=== PATIENT | male | born 1970 | race Caucasian/White ===

== ENCOUNTER 2022-07-08 07:19 | Emergency (ER) | payer MEDICAID, SELFPAY ==
[2022-07-08 07:34] VITALS: BP 156/97; PULSE 64; RESP 16; TEMP 36.7; O2SAT 97; BMI 26.4
--- NOTE | 2022-07-08 07:48 | ED_ITS ---
HPI - Headache General: Chief Complaint: Headache Stated Complaint: head pain, N/V, Fever Time Seen by Provider: 07/08/22 07:41 Source: patient Mode of arrival: ambulatory Limitations: no limitations History of Present Illness: Patient is a 51-year-old male who presents to ED today for treatment of headache. Patient states he has a history of migraine headaches and states this headache currently feels identical to previous migraines only worse in severity. He states when they were living in [place] he was on medications for treatment of his headaches however when they moved to [place] they lost insurance and just now received [place] Medicaid. Patient states while in [place] when he had to go to the ED for headaches they usually gave him Imitrex with good relief. Patient reports headache is worse with light and sound. He reports slight nausea but no episodes of vomiting. Patient reports chronic neck pain that is at his baseline. No pain with range of motion or neck stiffness. Triage mentioned something in regards to a fever however patient tells me that he just felt warm once. No documented fevers. Patient is afebrile here. MD elicited complaint: headache and migraine Pertinent past history: migraines Onset (ago): hour(s) Onset description: gradually Location: frontal Severity: severe Pain scale (0-10): 12 Exacerbating factors: light and noise Relieving factors: nothing Associated symptoms: Reports nausea; Deny fever(s), malaise, rash or vomiting Treatments prior to arrival: migraine medication Review of Systems Const: Denies: fever(s), chills, body aches, fatigue or malaise Eyes: Reports: photophobia; Denies: change in vision, blurry vision, floaters or seeing flashes ENMT: Denies: throat pain, odynophagia, nasal discharge or nasal congestion GI: Reports: nausea; Denies: abdominal pain, vomiting or diarrhea Musc: Denies: neck pain or back pain Skin/Breast: Denies: rash Neuro: Reports: headache(s); Denies: numbness in extremities, weakness in extremities, sensory changes or dizziness Physical Exam Const: COMMON NORMALS: no acute distress, average body habitus, patient oriented x3, no limitations, healthy appearing, alert and well nourished GENERAL APPEARANCE: cooperative ORIENTATION/CONSCIOUSNESS: Yes awake, Yes oriented to person, Yes oriented to place and Yes oriented to time HENMT: COMMON NORMALS: normocephalic and atraumatic HEAD & SCALP: normal to inspection, normocephalic and atraumatic FACE & SINUS: normal facial exam Eye: GENERAL EYE: appearance normal, both eyes and all related structures Neck/C-Spine: COMMON NORMALS: full ROM, no lymphadenopathy, supple and no meningeal signs Resp: COMMON NORMALS: normal respiratory effort and clear to auscultation bilaterally AUSCULTATION: clear to auscultation bilaterally Cardio: COMMON NORMALS: regular rate and regular rhythm RATE: regular rate RHYTHM: regular rhythm Extremity: COMMON NORMALS: normal to inspection GENERAL: Yes normal exam except as noted Neuro: [place] COMA SCALE: document GCS findings [place] coma scale eye opening: Spontaneous [place] coma scale verbal response: Orientated [place] coma scale motor response: Obey commands [place] coma scale total score: 15 COMMON NORMALS: patient oriented x3, CN's II-XII intact bilaterally, moves all extremities, no focal motor deficits, no sensory deficits noted and gait normal SENSORIUM/ORIENTATION: Yes alert, Yes oriented to person, Yes oriented to place and Yes oriented to time MENINGEAL SIGNS: Yes no meningeal signs Skin: COMMON NORMALS: no rashes or lesions noted GENERAL SKIN EXAM: no rashes or lesions noted Course Vital Signs: Vital signs: Vital Signs Temperature 98.1 F 07/08/22 07:34 Pulse Rate 64 07/08/22 07:34 Respiratory Rate 16 07/08/22 07:34 Blood Pressure 156/97 07/08/22 07:34 Pulse Oximetry 97 07/08/22 07:34 Oxygen Delivery Me thod Room Air 07/08/22 07:34 MDM - Headache Medical Decision Making Patient reports JOLLEY has much improved and would like to go home at this time. Return to ED precautions given. Discharge Plan Discharge Patient Disposition: Home Clinical Impression: Migraine Qualifiers: Migraine type: without aura Status migrainosus presence: without status migrainosus Intractability: not intractable Qualified Code(s): G43.009 - Migraine without aura, not intractable, without status migrainosus Condition: Stable Discharge Orders: Discharge ED (Routine); Ordered 07/08/22 Ordered By: Angie Corcoran Referrals: Rayne Ford DO [Primary Care Provider] - Patient Instructions: Headache - Migraine (Adult) Coding Level of Care Code ED Crew Supervisor for [facility] Ul[facility]
[2022-07-08] MEDS: SUMAtriptan 6 mg/0.5 mL SDV SUBCUT (08:11)
[2022-07-08] MEDS: ondansetron 2 mg/ML SDV 2 mL 4 MG IM (08:11)
[2022-07-08] MEDS: ketorolac 60 mg/2 mL INJ IM (09:20)
== END 2022-07-08 09:40 | disposition home or self-care (01) ==
PROVIDERS: Emergency Provider Physician Assistant; PCP Family Medicine
DX: G43.009 Migraine without aura, not intractable, without status migrainosus (principal)
CPT/HCPCS: 96372; 99284; J1885; J2405; J3030

== ENCOUNTER 2022-07-13 12:58 | Emergency (ER) | payer MEDICAID, SELFPAY ==
[2022-07-13 13:01] VITALS: BP 153/114; RESP 18; TEMP 36.4; BMI 25.7
--- NOTE | 2022-07-13 13:06 | ED_ITS ---
HPI - Headache General: Chief Complaint: Headache Stated Complaint: migraine Time Seen by Provider: 07/13/22 13:01 Source: patient and family Mode of arrival: ambulatory Limitations: no limitations History of Present Illness: Patient is a 51-year-old male who presents to ED today with complaint of a he adache. He states he has history of migraine headaches and his headache today feels similar to previous migraine headaches only worse in severity. I personally saw patient approximately 5 days ago for treatment of a migraine headache. He states he felt better when he left the ED and states over the past 4 days he has been asymptomatic. He states he woke up this morning and headache began shortly after. Significant other states that she is concerned as patient has had some tick bites recently and wonders if this could be related to tick illness. Patient states he has not had any abnormal skin lesions/rashes. He does not complain of abdominal pain. He has not had any vomiting or diarrhea. Does reportedly currently feel nauseous secondary to his headache. He reports chronic neck and back pain at his baseline. He has not been running fevers but has felt sweaty at times. Denies visual changes. Has sensitivity to light/sound. Has no neurologic complaints/deficits at this time. MD elicited complaint: headache and migraine Pertinent past history: migraines Onset (ago): hour(s) Severity: severe Exacerbating factors: light and noise Relieving factors: nothing Associated symptoms: Reports nausea; Deny chest pain, confusion, fever(s), malaise, pre-syncope, rash, syncope or vo miting Treatments prior to arrival: none Review of Systems Const: Denies: fever(s), body aches, fatigue or malaise Eyes: Reports: photophobia; Denies: change in vision, blurry vision, floaters or seeing flashes ENMT: Denies: throat pain, odynophagia, ear or mastoid pain, nasal discharge, nasal congestion or post nasal drip Card: Denies: chest pain, palpitations, edema, swelling of feet/ankles, syncope, pre-syncope, dyspnea on exertion or orthopnea Resp: Denies: dyspnea, productive cough, non-productive cough, wheezing, pain on inspiration, hemoptysis or chest congestion GI: Reports: nausea; Denies: abdominal pain, vomiting, diarrhea or change in bowel habits : Denies: flank pain or dysuria Musc: Reports: neck pain (chronic) and back pain (chronic); Denies: extremity pain, extremity swelling, joint pain, joint swelling, joint redness or joint warmth Skin/Breast: Denies: rash Neuro: Reports: headache(s); Denies: numbness in extremities, weakness in extremities, sensory changes, lack of coordination, difficulty walking, frequent falls, dizziness, vertigo, confusion, behavioral changes, Slurred speech present, difficulty communicating thoughts or seizure-like activity Physical Exam Const: COMMON NORMALS: average body habitus, patient oriented x3, no limitations, healthy appearing, alert and well nourished GENERAL APPEARANCE: cooperative and in distress (appears uncomfortable secondary to pain) ORIENTATION/CONSCIOUSNESS: Yes awake, Yes oriented to person, Yes oriented to place and Yes oriented to time HENMT: COMMON NORMALS: normocephalic and atraumatic HEAD & SCALP: normal to inspection, normocephalic and atraumatic FACE & SINUS: normal facial exam Eye: GENERAL EYE: appearance normal, both eyes and all related structures Neck/C-Spine: COMMON NORMALS: full ROM, no lymphadenopathy, supple and no meningeal signs Resp: COMMON NORMALS: normal respiratory effort and clear to auscultation bilaterally AUSCULTATION: clear to auscultation bilaterally Cardio: COMMON NORMALS: regular rate and regular rhythm RATE: regular rate RHYTHM: regular rhythm GI: COMMON NORMALS: Normal to inspection, nondistended, normoactive bowel sounds present, Soft to palpation, non-tender, No hepatosplenomegaly present and no masses PALPATION: Yes Soft to palpation and Yes No hepatosplenomegaly present Back/Pelvis: COMMON NORMALS: thoracic and lumbar spine normal to inspection, no thoracic nor lumbar tenderness and thoraco-lumbar ROM normal Extremity: COMMON NORMALS: normal to inspection GENERAL: Yes normal exam except as noted Neuro: [place] COMA SCALE: document GCS findings [place] coma scale eye opening: Spontaneous [place] coma scale verbal response: Orientated [place] coma scale motor response: Obey commands [place] coma scale total score: 15 COMMON NORMALS: patient oriented x3, CN's II-XII intact bilaterally, moves all extremities, no focal motor deficits and no sensory deficits noted SENSORIUM/ORIENTATION: Yes alert, Yes oriented to person, Yes oriented to place and Yes oriented to time MENINGEAL SIGNS: Yes no meningeal signs Skin: COMMON NORMALS: no rashes or lesions noted GENERAL SKIN EXAM: no rashes or lesions noted Course Vital Signs: Vital signs: Vital Signs Temperature 97.6 F 07/13/22 13:01 Respiratory Rate 18 07/13/22 13:01 Blood Pressure 153/114 07/13/22 13:01 Oxygen Delivery Me thod Room Air 07/13/22 13:01 MDM - Headache Medical Decision Making JOLLEY much improved while here and patient would like to go home. CT head negative. I have a low suspicion for tick illness at this time. Blood work is completely unremarkable. Tick panel was collected and pending. We will give him a prescription for Imitrex which is something he has been on previously to help him try to avoid having to come to the ED. He states he recently got insurance and is hoping to set up with a primary care provider soon. Return ED precautions given. Lab Data 07/13/22 13:30 07/13/22 13:[address] 07/13/22 14:25 IMPRESSION: 1. Unremarkable CT examination of the head 2. Mild sinusitis frontal ethmoid sinus as discussed above. Laboratory Results WBC 8.2 10^3/uL (4.0-10.0) 07/13/22 13:30 RBC 4.96 10^6/uL (4.1-5.3) 07/13/22 13:30 Hgb 14.9 g/dL (11.7-16.6) 07/13/22 13:30 Hct 44.6 % (42.0-52.0) 07/13/22 13:30 MCV 89.9 fl (80-94) 07/13/22 13:30 MCH 30.0 pg (28.0-34.0) 07/13/22 13:30 MCHC 33.4 g/dL (30.0-36.0) 07/13/22 13:30 RDW 12.3 % (12.1-15.1) 07/13/22 13:30 Plt Count 281 10^3/cmm (130-400) 07/13/22 13:30 MPV 8.8 fL (7.4-10.4) 07/13/22 13:30 Neut % (Auto) 73.2 % 07/13/22 13:30 Lymph % (Auto) 18.1 % 07/13/22 13:30 Carl[place] % (Auto) 6.2 % 07/13/22 13:30 Eos % (Auto) 1.6 % 07/13/22 13:30 Baso % (Auto) 0.7 % 07/13/22 13:30 Neut # (Auto) 6.00 10^3/uL (1.8-7.7) 07/13/22 13:30 Lymph # (Auto) 1.5 10^3/uL (0.8-4.8) 07/13/22 13:30 Carlton # (Auto) 0.5 10^3/uL (0.2-0.9) 07/13/22 13:30 Eos # (Auto) 0.1 10^3/uL (0.0-0.8) 07/13/22 13:30 Baso # (Auto) 0.1 10^3/uL (0.0-0.1) 07/13/22 13:30 Nucleated RBC % (auto) 0 % 07/13/22 13:30 Nucleated RBCs # 0.0 /100WBC 07/13/22 13:30 Sodium 137 mmol/L (136-145) 07/13/22 13:30 Potassium 4.3 mmol/L (3.5-5.1) 07/13/22 13:30 Chloride 103 mmol/L (98-107) 07/13/22 13:30 Carbon Dioxide 27 mmol/L (22-29) 07/13/22 13:30 Anion Gap 11.3 (5-19) 07/13/22 13:30 BUN 10 mg/dL (6-20) 07/13/22 13:30 Creatinine 1.2 mg/dL (0.7-1.2) 07/13/22 13:30 GFR Calculation 64.1 mL/min (90-130) L 07/13/22 13:30 Glucose 102 mg/dL (65-115) 07/13/22 13:30 Calculated Osmolality 283 mOsm/kg (285-295) L 07/13/22 13:30 Calcium 8.9 mg/dL (8.5-10.5) 07/13/22 13:30 Total Bilirubin 0.5 mg/dL (0.15-1.2) 07/13/22 13:30 AST 14 U/L (0-40) 07/13/22 13:30 ALT 14 U/L (0-41) 07/13/22 13:30 Alkaline Phosphatase 80 U/L (40-130) 07/13/22 13:30 Total Protein 6.5 g/dL (6.6-8.7) L 07/13/22 13:30 Albumin 4.0 g/dL (3.5-5.2) 07/13/22 13:30 Globulin 2.5 g/dL (1.3-4.6) 07/13/22 13:30 Discharge Plan Discharge Patient Disposition: Home Clinical Impression: Migraine Condition: Stable Prescriptions: New Imitrex 50 mg tablet See Rx Instructions .ROUTE .COMPLEX Qty: 14 0RF Rx Instructions: take 1 tab at onset of headache; if no relief may repeat 1 tab after at least 2 hrs; max = 4 tabs/24 hr Discharge Orders: Discharge ED (Routine); Ordered 07/13/22 Ordered By: Angie Corcoran Referrals: Rayne Ford DO [Primary Care Provider] - Coding Level of Care Code ED Metal Expediter for Shruthi Montgomery
[2022-07-13] MEDS: dihydroergotamine 1 mg/mL Inj IVP (13:32)
[2022-07-13] MEDS: metoclopramide 5 mg/mL SDV 2 mL 10 MG IVP (13:32)
[2022-07-13 13:44] LABS: Basophils # 0.1 10^3/uL (0.0-0.1); Basophils % 0.7 %; Eosinophils # 0.1 10^3/uL (0.0-0.8); Eosinophils % 1.6 %; Hematocrit 44.6 % (42.0-52.0); Hemoglobin 14.9 g/dL (11.7-16.6); Lymphocytes # 1.5 10^3/uL (0.8-4.8); Lymphocytes % 18.1 %; Mean Corpuscular HGB Conc 33.4 g/dL (30.0-36.0); Mean Corpuscular Volume 89.9 fl (80-94); Mean Platelet Volume 8.8 fL (7.4-10.4); Monocytes # 0.5 10^3/uL (0.2-0.9); Monocytes % 6.2 %; Neutrophils % 73.2 %; Nucleated Red Blood Cells % 0 %; Platelet Count 281 10^3/cmm (130-400); Red Blood Count 4.96 10^6/uL (4.1-5.3); Red Cell Distribution Width 12.3 % (12.1-15.1); White Blood Count 8.2 10^3/uL (4.0-10.0)
--- NOTE | 2022-07-13 14:25 | CTR_ITS ---
PROCEDURE INFORMATION: Exam: CT Head Without Contrast Exam date and time: 07/13/2022 2:37 PM Age: 51 years old Clinical indication: Pain; Headache not specified; Patient HX: Head trauma 20 years ago, with intermittent recurring headaches since TECHNIQUE: Imaging protocol: Computed tomography of the head without contrast. Radiation optimization: All CT scans at this facility use at least one of these dose optimization techniques: automated exposure control; mA and/or kV adjustment per patient size (includes targeted exams where dose is matched to clinical indication); or iterative reconstruction. REPORTING DATA: Count of CT and Cardiac NM exams in prior 12 months: This patient has received 0 known CTs and 0 known cardiac nuclear medicine studies in the 12 months prior to the current study. COMPARISON: No relevant prior studies available. RADIATION DOSE METRICS: Total DLP (mGy-cm): 1033.98 FINDINGS: Brain: Normal. No hemorrhage. No mass effect or midline shift. Cortical sulci and white matter are unremarkable for age. Cerebral ventricles: Unremarkable for age. Paranasal sinuses: The partial opacification of the ethmoid and frontal sinuses secondary to mucosal thickening with 2 cm polyp or retention cysts within the left frontal sinus. Mastoid air cells: Visualized mastoid air cells are well aerated. Bones/joints: Unremarkable. No acute fracture. Soft tissues: Unremarkable. CT/CT head wo con* [id number] IMPRESSION: 1. Unremarkable CT examination of the head 2. Mild sinusitis frontal ethmoid sinus as discussed above.
[2022-07-13 14:32] LABS: Alanine Aminotransferase 14 U/L (0-41); Alkaline Phosphatase 80 U/L (40-130); Anion Gap 11.3 (5-19); Aspartate Amino Transferase 14 U/L (0-40); Blood Urea Nitrogen 10 mg/dL (6-20); Calcium 8.9 mg/dL (8.5-10.5); Carbon Dioxide 27 mmol/L (22-29); Chloride 103 mmol/L (98-107); Creatinine Clr Calc Pharmacy 84.4096; Globulin 2.5 g/dL (1.3-4.6); Glomerular Filtration Rate 64.1 mL/min (90-130); Glucose 102 mg/dL (65-115); Osmolality Calculated 283 mOsm/kg (285-295); Potassium 4.3 mmol/L (3.5-5.1); Sodium 137 mmol/L (136-145); Total Bilirubin 0.5 mg/dL (0.15-1.2); Total Protein 6.5 g/dL (6.6-8.7)
[2022-07-13] MEDS: dexamethasone 10 mg/mL INJ 8 MG IVP (14:55)
[2022-07-13] MEDS: diphenhydrAMINE 50 mg/mL SDV 1mL IVP (14:55)
[2022-07-13] MEDS: ketorolac 60 mg/2 mL INJ 30 MG IVP (14:56)
[2022-07-17 14:10] LABS: Lyme AB Screen <0.90 index
[2022-07-22 17:34] LABS: RMSF IGG NOT DETECTED; RMSF IGM NOT DETECTED
[2022-07-22 21:09] LABS: E. Chaffeensis AB IGG <1:64; E. Chaffeensis AB IGM <1:20
== END 2022-07-13 16:05 | disposition home or self-care (01) ==
PROVIDERS: Emergency Provider Physician Assistant; PCP Family Medicine
DX: G43.909 Migraine, unspecified, not intractable, without status migrainosus (principal)
CPT/HCPCS: 70450; 80053; 85025; 86618; 86666; 86757; 96374; 96375; 99285; J1100; J1110; J1200; J1885; J2765